=== PATIENT | female | born 1945 | race Caucasian/White ===

== ENCOUNTER 2022-02-07 10:47 | Emergency (ER) | payer MEDICARE ==
[~2022-02-07] VITALS: Ht 170.2 cm; Wt 91.0 kg
[2022-02-07] MEDS ORDERED: ELIQUIS5 MG PO (11:01)
[2022-02-07] MEDS ORDERED: ASPIRIN81 MG PO (11:02)
[2022-02-07] MEDS ORDERED: ATORVASTATIN CA40 MG PO (11:02)
[2022-02-07] MEDS ORDERED: MULTI VIT PO (11:03)
[2022-02-07] MEDS ORDERED: LOSARTAN POTASS25 MG PO (11:03)
[2022-02-07] MEDS ORDERED: METFORMIN HCL1000 MG PO (11:03)
[2022-02-07] MEDS ORDERED: VITAMI17 PO (11:03)
[2022-02-07] MEDS ORDERED: TAMSULOSIN HCL0.4 MG PO (11:04)
[2022-02-07] MEDS ORDERED: OMEPRAZOLE20 MG PO (11:04)
[2022-02-07] MEDS ORDERED: ZYRTEC10 MG PO (11:04)
[2022-02-07] MEDS ORDERED: ZPAK PO ×2 (12:29→12:58)
[2022-02-07 12:55] VITALS: BP 158/74
== END 2022-02-07 12:55 | disposition home or self-care (01) ==
LOC: ED 10:47
DX: J11.1 Influenza due to unidentified influenza virus with other respiratory manifestations (principal); I10 Essential (primary) hypertension; I25.10 Atherosclerotic heart disease of native coronary artery without angina pectoris; Z20.822 Contact with and (suspected) exposure to COVID-19

== ENCOUNTER 2022-02-22 09:29 | Emergency (ER) | payer MEDICARE ==
[~2022-02-22] VITALS: Ht 170.2 cm; Wt 90.7 kg
[~2022-02-22 09:29] MED LIST: ASPIRIN81 MG PO; ATORVASTATIN CA40 MG PO; ELIQUIS5 MG PO; LOSARTAN POTASS25 MG PO; METFORMIN HCL1000 MG PO; MULTI VIT PO; OMEPRAZOLE20 MG PO; TAMSULOSIN HCL0.4 MG PO; VITAMI17 PO; ZPAK PO; ZYRTEC10 MG PO
[2022-02-22 12:07] VITALS: BP 163/67
[2022-02-22] MEDS ORDERED: MEDDOSEPAK PO (12:46)
[2022-02-22] MEDS ORDERED: LEVOCETIRIZINE D5 MG PO (12:46)
[2022-02-22] MEDS ORDERED: BENZONATATE200 MG PO (12:46)
[2022-02-22] MEDS ORDERED: FLONASE AL50 MCG/ACT (12:46)
[2022-02-22 12:56] VITALS: BP 163/67
== END 2022-02-22 13:12 | disposition home or self-care (01) ==
LOC: ED 09:29
DX: R05.9 Cough, unspecified (principal); R09.81 Nasal congestion; I10 Essential (primary) hypertension; I25.10 Atherosclerotic heart disease of native coronary artery without angina pectoris; Z20.822 Contact with and (suspected) exposure to COVID-19